=== PATIENT | male | born 1945 | race Caucasian/White ===

== ENCOUNTER 2020-09-16 13:44 | Inpatient (IN) | payer OTHER, BC ==
[2020-09-16 14:45] LABS: BASO % 0.9 % (0-2.0); EOS % 2.1 % (0-4.5); HEMOGLOBIN 14.1 GM/dL (11.7-16.9); MCH 29.4 pg (25.7-33.7); MCHC 32.9 g/dl (32.0-35.9); MEAN CELL VOLUME 89.5 fl (80-96); MEAN PLT VOLUME 9.8 fl (7.5-11.1); MONO % 7.2 % (3.8-10.2); NEUT % 69.8 % (42.8-82.8); PLATELET COUNT 186 K/MM3 (134-434); RBC 4.81 M/mm3 (4.00-5.60); RDW 15.1 % (11.9-15.9); WHITE BLOOD COUNT 9.4 K/mm3 (4.0-10.0)
[2020-09-16 14:51] LABS: INR 0.97 (0.83-1.09)
[2020-09-16 14:54] LABS: ACTIVATED PTT 33.6 SECONDS (25.2-36.5)
[2020-09-16 15:02] LABS: CHLORIDE 107 mmol/L (98-107); SODIUM 142 mmol/L (136-145)
[2020-09-16 15:04] LABS: ALBUMIN 4.1 g/dl (3.4-5.0); CALCIUM 9.9 mg/dL (8.5-10.1)
[2020-09-16 15:05] LABS: ANION GAP 7 MMOL/L (8-16); BLOOD UREA NITROGEN 25.2 mg/dL (7-18); CO2 29 mmol/L (21-32); GLUCOSE,RANDOM 97 mg/dL (74-106)
[2020-09-16 15:08] LABS: SGOT/AST 15 U/L (15-37); SGPT/ALT 18 U/L (13-61)
[2020-09-16 15:09] LABS: BILIRUBIN,TOTAL 1.1 mg/dL (0.2-1); TOT PROT 7.8 g/dl (6.4-8.2)
[2020-09-16 15:10] LABS: ALK PHOS 67 U/L (45-117)
[2020-09-16 16:11] LABS: URINE APPEARANCE CLEAR; URINE BILIRUBIN NEGATIVE (NEGATIVE); URINE COLOR YELLOW; URINE GLUCOSE (UA) NEGATIVE (NEGATIVE); URINE KETONE NEGATIVE (NEGATIVE); URINE LEUK ESTERASE NEGATIVE (NEGATIVE); URINE NITRITE NEGATIVE (NEGATIVE); URINE PROTEIN NEGATIVE (NEGATIVE); URINE UROBILINOGEN 0.2 mg/dL (0.2-1.0)
[2020-09-16] MEDS ORDERED: ROSUVASTATIN CA 10 MG TABLET (FP) PO SCH (22:00)
[2020-09-17 04:05] VITALS: BMI 28.3
[2020-09-17] MEDS ORDERED: amLODIPine BESYLATE 5 MG TABLET (FP) PO SCH (10:00)
[2020-09-17 15:14] VITALS: BP 145/75; PULSE 58; TEMP 98.3
[2020-09-17 17:29] LABS: BLOOD UREA NITROGEN 25.6 mg/dL (7-18); CALCIUM 9.2 mg/dL (8.5-10.1)
[2020-09-17 17:30] LABS: MAGNESIUM 2.5 mg/dL (1.8-2.4)
[2020-09-17 17:32] LABS: CREATININE 1.9 mg/dL (0.55-1.3); PHOSPHOROUS 3.1 mg/dL (2.5-4.9)
== END 2020-09-17 18:19 | disposition left against medical advice (07) | DRG 310 ==
LOC: JER 13:44 → JERBED 15:52 → J4W 09-17 03:40
PROVIDERS: ADMIT Internal Medicine; ATTEND Internal Medicine
DX: R00.1 Bradycardia, unspecified (principal); E78.5 Hyperlipidemia, unspecified; J44.9 Chronic obstructive pulmonary disease, unspecified; I12.9 Hypertensive chronic kidney disease with stage 1 through stage 4 chronic kidney disease, or unspecified chronic kidney disease; K21.9 Gastro-esophageal reflux disease without esophagitis; I73.9 Peripheral vascular disease, unspecified; N18.30 Chronic kidney disease, stage 3 unspecified
CPT/HCPCS: 36415; 71046-TC-FY; 80048; 80053; 81003; 82550; 83735; 84100; 84153; 84439; 84443; 84481; 84484; 85025; 85610; 85730; 86850; 86900; 86901; 87086; 93005; 93010; 93306-TC; 99285-25; C9803; U0003; U0005